=== PATIENT | male | born 1950 | race Caucasian/White ===

== ENCOUNTER 2021-07-31 17:48 | Emergency (ER) | payer BC, SELFPAY ==
--- NOTE | ~2021-07-31 | XR_ITS ---
EXAMINATION: XR knee LT 3V DATE: 07/31/2021 18:09 INDICATION: Left knee pain TECHNIQUE: Three views of the left knee were obtained. COMPARISON: None. FINDINGS: Alignment is normal. No fracture or osteochondral lesion. There is mild tricompartmental os teoarthritis characterized by tiny marginal osteophytes. No joint effusion/synovitis. Soft tissues a re unremarkable. IMPRESSION: 1. No acute osseous abnormality. Reviewed, dictated and finalized at location F.
[2021-07-31 17:57] VITALS: BP 151/77; PULSE 89; RESP 16; TEMP 36.8; O2SAT 97
--- NOTE | 2021-07-31 18:17 | ED.LOWEXIN ---
HPI - Extremity Injury (Lower) General Chief Complaint: Extremity Injury, Lower Stated Complaint: lt knee pain Time Seen by Provider: 07/31/21 18:17 Source: patient, RN notes reviewed and old records reviewed Mode of arrival: ambulatory History of Present Illness HPI Narrative: 71-year-old male who presents to [facility] care with complaints of pain to his left knee which started yesterday. Patient states he knows of no injury to his left knee has been doing his normal activities with no increased activity home stress to his left knee. Patient states when he first arises to standing position he has pain behind his knee cap and as he bears weight his anterior knee cap area has increased pain with greatest at bottom region of knee. Patient has taken one dose of Naprosyn for his discomfort, he has not used any ice to his knee which has minimal swelling noted. MD complaint: other (knee pain, no known injury) Onset (ago): day(s) (1) Treatments prior to arrival: other (naproxen) Related Data Home Medications Medication Instructions Recorded Confirmed aspirin 81 mg tablet,delayed 81 mg PO DAILY 10/17/19 11/26/20 release (Adult Low Dose Aspirin) Allergies Allergy/AdvReac Type Severity Reaction Status Date / Time adhesive Allergy Unknown Verified 09/02/17 10:02 No Known Allergies Allergy Unverified 03/20/15 07:53 Review of Systems Review of Systems: CONSTITUTIONAL: Denies fever, chills, or sweats. EYES: Denies visual changes, redness, or discharge. ENT: Denies rhinorrhea, congestion, sore throat, or otalgia. CARDIOVASCULAR: Denies chest pain, palpitations, or edema. RESPIRATORY: Denies cough or dyspnea. GASTROINTESTINAL: Denies abdominal pain, nausea, vomiting, or diarrhea. GENITOURINARY: Denies dysuria or hematuria. SKIN: Denies rash or itching. MUSCULOSKELETAL: Denies back pain, positive for left knee joint pain, or myalgia. NEUROLOGIC: Denies headache, numbness, or weakness. PSYCHIATRIC: Denies anxiety or depression. [facility] Past Medical History Medical History BPH (benign prostatic hyperplasia) Elevated liver enzymes Heartburn Hemorrhoids History of measles, mumps, or rubella Hyperlipidemia Hypertension Hypothyroidism Sexual dysfunction Sleep apnea Umbilical hernia Surgical History Surgical History H/O adenoidectomy History of tonsillectomy Family History Family History Father Lymphoma Mother No problems noted. Social History Social History Smoking status: Never smoker Second hand tobacco smoke exposure: No Alcohol intake: never Comments At time of signature, agree with nursing past medical, surgical, social and family history. There is no relevant family history pertinent to the presenting complaint Exam Narrative: GENERAL: Well-appearing, well-nourished, obese and in no acute distress. HEAD: Normocephalic, atraumatic. EYES: PERRLA and EOMI. ENT: Nares clear, no rhinorrhea or epistaxis. Mucous membranes moist. TMs normal with good light reflex throat pink with no lesions or exudate no tonsils present NECK: Supple. No lymphadenopathy CHEST: Clear to auscultation. No respiratory distress. SaO2 97% on room air HEART: Regular rate and rhythm. No murmur heard. Normal peripheral pulses. ABDOMEN: Soft, nontender, nondistended, normal active bowel sounds. EXTREMITIES: Normal range of motion mild edema to left knee full range of motion, pain with bearing weight to the anterior knee. Patient reports pain behind the knee also when first arising. Patient has strong pedal and posterior tibial pulses denies any tingling or numbness to the lower leg denies any known injury SKIN: Warm, dry, no rash. NEURO: No focal deficits. Alert and oriented x3. Course Course Level of Care
== END 2021-07-31 18:41 | disposition home or self-care (01) ==
PROVIDERS: Emergency Provider Registered Nurse; PCP Internal Medicine
DX: M17.12 Unilateral primary osteoarthritis, left knee (principal); N40.0 Benign prostatic hyperplasia without lower urinary tract symptoms; E78.5 Hyperlipidemia, unspecified; I10 Essential (primary) hypertension; E03.9 Hypothyroidism, unspecified; G47.30 Sleep apnea, unspecified; Z79.82 Long term (current) use of aspirin
CPT/HCPCS: 73562; 99213; G0463

== ENCOUNTER → 2022-02-23 14:29 | Outpatient (CLI) | payer MEDICARE, SELFPAY ==
--- NOTE | ~2022-02-23 | XR_ITS ---
Clinical Indication: Cough PA and lateral views of the chest: Comparison: None Findings: There is probable subsegmental left basilar atelectasis. Lungs otherwise clear. Cardiomedi astinal silhouette is within normal limits. Bones and soft tissues are unremarkable. Impression: Probable minimal left basilar atelectasis, otherwise clear lungs. Reviewed, dictated and finalized at location . TELEPHONE TRIAGE Impression: Probable minimal left basilar atelectasis, otherwise clear lungs.
== END ==
PROVIDERS: PCP Internal Medicine; Visit Provider Clinical Nurse Specialist
DX: R05.9 Cough, unspecified (principal)
CPT/HCPCS: 71046

== ENCOUNTER → 2022-03-30 08:08 | Outpatient (CLI) | payer MEDICARE, SELFPAY ==
--- NOTE | ~2022-03-30 | US_ITS ---
Limited Abdominal Sonogram: Real-time sonographic imaging of the right upper quadrant was performed. Clinical History: Fatty infiltration of the liver Findings: The liver appears mildly echogenic/heterogeneous, with no evidence of mass lesion or bile duct dilatation. Main portal vein demonstrates normal direction of flow. The gallbladder is well dist ended, and appears normal with no evidence of gallstone or wall thickening. The common bile duct jose d ures 4 mm. The visualized pancreas, aorta, and IVC are unremarkable. Impression: Diffuse fatty infiltration of liver. Reviewed, dictated and finalized at location M. F OF STAFF Impression: Diffuse fatty infiltration of liver.
== END ==
PROVIDERS: PCP Internal Medicine; Visit Provider Nurse Practitioner
DX: K76.0 Fatty (change of) liver, not elsewhere classified (principal)
CPT/HCPCS: 76705

== ENCOUNTER 2022-06-10 06:30 | Day surgery (SDC) | payer MEDICARE, SELFPAY ==
[2022-04-16 11:15] VITALS: BMI 36.3
[2022-05-26 11:29] VITALS: BMI 36.3
--- NOTE | 2022-06-09 11:54 | WPDANESEPPF ---
Anes - Initial Pre Proc Eval Procedure: Operation Date: 06/10/22 08:00 Proposed Procedures s Esophagogastroduodenoscopy - Madhu Hernandez MD p Screening Colonoscopy - Madhu Hernandez MD Date/Time: 06/09/22 11:54 Surgeon: Madhu Hernandez MD Pre Op Diagnosis: Gerd Neoplasm Screening Patient Data Age: 71 Gender: M Height: 1.8 m Weight: 118 kg Allergies Allergy/AdvReac Type Severity Reaction Status Date / Time adhesive Allergy Mild Redness of Verified 06/10/22 06:58 Skin Home Medications Medication Instructions Recorded Confirmed Type aspirin 81 mg tablet,delayed 81 mg PO DAILY 10/17/19 06/10/22 History release (Adult Low Dose Aspirin) lisinopril 20 mg tablet 20 mg PO DAILY #90 tabs 12/16/21 06/10/22 Rx azelastine 137 mcg (0.1 %) nasal 137 mcg (0.137 mL) intranasal Q12H 02/23/22 06/10/22 Rx spray aerosol #30 mL fluticasone propionate 50 See Rx Instructions .Route 02/25/22 06/10/22 Rx mcg/actuation nasal .COMPLEX #48 grams spray,suspension pravastatin 40 mg tablet 40 mg PO QHS #90 tabs 03/26/22 06/10/22 Rx tamsulosin 0.4 mg capsule (Flomax) 0.4 mg PO DAILY #90 caps 03/26/22 06/10/22 Rx levothyroxine 50 mcg tablet 50 mcg PO DAILY #90 tabs 06/02/22 06/10/22 Rx Patient hx anesthesia problems: none Family hx anesthesia problems: none Results Review: All pre-operative results and documents have been reviewed as part of the pre-operative evaluation. [facility] Past Medical History Medical History (Updated 06/09/22 @ 11:55 by Rubin Lima MD) BPH (benign prostatic hyperplasia) Elevated liver enzymes Heartburn Hemorrhoids History of measles, mumps, or rubella Hyperlipidemia Hypertension Hypothyroidism Obesity Sexual dysfunction Sleep apnea Umbilical hernia Surgical History Surgical History H/O adenoidectomy History of tonsillectomy Family History Family History Father Lymphoma Mother No problems noted. Social History Social History Smoking status: Never smoker Second hand tobacco smoke exposure: No Alcohol intake: never Substance use: never Substance use type: does not use Lack of Transportation: No Lack of Food: Never True Current Housing: I Have Housing Concerned About Future Housing: No Difficulty Paying Gas/Electric Bills: No Difficulty Paying for Meds: No Currently Unemployed: No Living arrangements: with family Spiritual care concerns: No Anes - Eval Final PreProcedure Day of Procedure 06/09/22 11:54 Patient weight: obese Heart: regular rate and rhythm Lungs: clear to auscultation and normal air movement Airway: Mallampati scale class II Neurological: alert and oriented Last oral intake: >/= 8 hours ASA classification: III Emergent: no Anesthetic plan: proceed Anesthesia type and monitoring: general GIVS Results Review: All pre-operative results and documents have been reviewed as part of the pre-operative evaluation. Informed Consent: The patient's anesthetic plan and its attendant risks and benefits were discussed with the patient/family/POA. Questions were solicited and answers provided to the satisfaction of the patient/family/POA.
--- NOTE | 2022-06-09 12:15 | PM.HPGS ---
History of Present Illness History of Present Illness Consent: Risks, benefits, and alternatives have been discussed and questions answered. Patient agrees to proceed with procedure. Chief complaint: Gerd Neoplasm Screening Narrative: Justyn Mendoza is a 71 year old male With a persistent cough since he had COVID. He also has symptoms when he lays flat such as in bed in that is difficult for him to breathe and he has test discomfort. He also has difficulty swallowing primarily liquids. He will sometimes choke as if it is going down the wrong way. He does not have issues were solid food gets stuck while eating. He does take famotidine once a day to help with his nighttime symptoms her He is due for colon cancer screening.In 2016 he had multiple adenomas removed. His last colonoscopy was in 2019 and was clear of polyps. Review of Systems Review of Systems: All systems reviewed & are unremarkable except as noted in HPI and below PMFSH Past Medical History Medical History BPH (benign prostatic hyperplasia) Elevated liver enzymes Heartburn Hemorrhoids History of measles, mumps, or rubella Hyperlipidemia Hypertension Hypothyroidism Obesity Sexual dysfunction Sleep apnea Umbilical hernia Surgical History Surgical History H/O adenoidectomy History of tonsillectomy Family History Family History Father Lymphoma Mother No problems noted. Social History Social History Smoking status: Never smoker Second hand tobacco smoke exposure: No Alcohol intake: never Substance use: never Substance use type: does not use Lack of Transportation: No Lack of Food: Never True Current Housing: I Have Housing Concerned About Future Housing: No Difficulty Paying Gas/Electric Bills: No Difficulty Paying for Meds: No Currently Unemployed: No Living arrangements: with family Spiritual care concerns: No Meds Home Medications and Allergies Home Medications Medication Instructions Recorded Confirmed Type aspirin 81 mg tablet,delayed 81 mg PO DAILY 10/17/19 06/10/22 History release (Adult Low Dose Aspirin) lisinopril 20 mg tablet 20 mg PO DAILY #90 tabs 12/16/21 06/10/22 Rx azelastine 137 mcg (0.1 %) nasal 137 mcg (0.137 mL) intranasal Q12H 02/23/22 06/10/22 Rx spray aerosol #30 mL fluticasone propionate 50 See Rx Instructions .Route 02/25/22 06/10/22 Rx mcg/actuation nasal .COMPLEX #48 grams spray,suspension pravastatin 40 mg tablet 40 mg PO QHS #90 tabs 03/26/22 06/10/22 Rx tamsulosin 0.4 mg capsule (Flomax) 0.4 mg PO DAILY #90 caps 03/26/22 06/10/22 Rx levothyroxine 50 mcg tablet 50 mcg PO DAILY #90 tabs 06/02/22 06/10/22 Rx Allergies Allergy/AdvReac Type Severity Reaction Status Date / Time adhesive Allergy Mild Redness of Verified 06/10/22 06:58 Skin Exam Const: General: alert Orientation/consciousness: patient oriented x3 Resp: Auscultation: clear to auscultation bilaterally Cardio: Rhythm: regular rhythm GI: GI Palp: Yes Soft to palpation and No Tenderness to palpation present (GI) Neuro: General: patient oriented x3 Assessment and Plan Assessment and plan (1) Chronic GERD: Code(s): K21.9 - Gastro-esophageal reflux disease without esophagitis Status: Acute Assessment and Plan: EGD with possible biopsy or dilatation or cautery. (2) Screening for colon cancer: Code(s): Z12.11 - Encounter for screening for malignant neoplasm of colon Status: Acute Assessment and Plan: Colonoscopy with possible biopsy or polypectomy or cautery or injection of substances.
[2022-06-10 06:45] VITALS: BP 151/74; PULSE 80; RESP 16; TEMP 36.7; O2SAT 97
[2022-06-10] MEDS: LACTATED RINGERS 1,000 ML 150 ML IV CONT (07:08)
[2022-06-10 08:24] VITALS: BP 104/58; PULSE 82; RESP 18; O2SAT 93
[2022-06-10 08:34] VITALS: BP 106/77; PULSE 73; RESP 18; O2SAT 96
[2022-06-10 08:44] VITALS: BP 119/67; PULSE 71; RESP 18; O2SAT 95
--- NOTE | 2022-06-22 08:29 | WPDANESPN ---
Anes - Prog Note Post-Op Date/Time: 06/22/22 08:29 Cardiovascular status: normal Respiratory status: normal Airway patency: baseline Mental status: baseline Post-Op hydration status: normal Vital Signs: Last Vital Signs Temp 36.7 C 06/10/22 06:45 Pulse 71 06/10/22 08:44 Resp 18 06/10/22 08:44 BP 119/67 06/10/22 08:44 Pulse Ox 95 06/10/22 08:44 O2 Del Method Room Air 06/10/22 08:44 Pain Score (VAS): 0 Post-procedural complaints: none Patient Feedback: Patient satisfied with anesthetic care.
== END 2022-06-10 09:05 | disposition home or self-care (01) ==
PROVIDERS: PCP Internal Medicine; Visit Provider Internal Medicine Gastroenterology
PROC: 0DJ08ZZ Inspection of Upper Intestinal Tract, Via Natural or Artificial Opening Endoscopic (ICD-10-PCS; CPT 43235; principal; 2022-06-10 08:00)
PROC: 0DJD8ZZ Inspection of Lower Intestinal Tract, Via Natural or Artificial Opening Endoscopic (ICD-10-PCS; CPT 45378; 2022-06-10 08:00)
DX: Z12.11 Encounter for screening for malignant neoplasm of colon (principal)
CPT/HCPCS: 45385; 43239

== ENCOUNTER 2022-06-10 10:01 | Outpatient (NON) | payer MEDICARE, SELFPAY | END 2022-06-10 10:02 | disposition home or self-care (01) | LOC: ANHLAB 06-11 10:03 | PROVIDERS: PCP Internal Medicine; Visit Provider Internal Medicine Gastroenterology | DX: K21.9 Gastro-esophageal reflux disease without esophagitis (principal); Z12.11 Encounter for screening for malignant neoplasm of colon | CPT/HCPCS: 88305 ==

== ENCOUNTER → 2023-03-17 07:46 | Outpatient (CLI) | payer MEDICARE, SELFPAY ==
--- NOTE | ~2023-03-17 | US_ITS ---
EXAMINATION: US right upper quadrant DATE: 03/17/2023 08:17 INDICATION: Fatty change of the liver TECHNIQUE: Multiple grayscale and Doppler ultrasound images of the abdomen were obtained. COMPARISON: None available FINDINGS: Bowel gas obscures visualization of the pancreas. The visualized portions of the pancreas a re unremarkable. The liver demonstrates increased echogenicity, heterogenous echotexture, and decreas ed through transmission. No surface nodularity. Normal hepatopetal flow in the main portal vein. The gallbladder is normal with no abnormal wall thickening, pericholecystic fluid or stones. The normal c ommon bile duct measures 6 mm. There was no sonographic Miller sign. IMPRESSION: 1. Diffuse hepatic steatosis. Reviewed, dictated and finalized at location L. [employer] DOOR MECHANIC
== END ==
PROVIDERS: PCP Clinical Nurse Specialist; Visit Provider Clinical Nurse Specialist
DX: K76.0 Fatty (change of) liver, not elsewhere classified (principal)
CPT/HCPCS: 76705

== ENCOUNTER 2023-04-21 10:53 | Outpatient (CLI) | payer MEDICARE, SELFPAY ==
--- NOTE | ~2023-04-21 | CT_ITS ---
EXAMINATION: CT sinus wo con DATE: 04/21/2023 11:11 INDICATION: Chronic maxillary sinusitis. TECHNIQUE: Computed tomography (CT) of the paranasal sinuses was performed without intravenous contra st. Iterative reconstruction technique was employed. The dose-length product was 307.43 mGy-cm. COMPARISON: Head CT 05/10/2012 FINDINGS: There is mild mucosal thickening in the frontal sinuses, ethmoid sinuses, and maxillary sin uses. The sphenoid sinuses are clear. There is leftward deviation of the nasal septum with a left lat eral spur. The ostiomeatal units are patent. IMPRESSION: 1. Mild mucosal thickening in the paranasal sinuses. 2. Leftward deviation of the nasal septum. Reviewed, dictated and finalized at location A.
== END 2023-04-21 10:54 ==
PROVIDERS: PCP Otolaryngology; Visit Provider Otolaryngology
DX: J32.0 Chronic maxillary sinusitis (principal); J34.2 Deviated nasal septum
CPT/HCPCS: 70486

== ENCOUNTER 2023-06-24 09:47 | Outpatient (CLI) | payer MEDICARE, SELFPAY ==
--- NOTE | ~2023-06-24 | XR_ITS ---
EXAMINATION: XR lumbar spine 2-3V DATE: 06/24/2023 10:01 INDICATION: Low back pain, unspecified. TECHNIQUE: 3 views of lumbar spine were obtained. COMPARISON: None. FINDINGS: There is 7 degrees levocurvature of thoracolumbar spine. There is mild chronic anterior wed ging of T12 and L1 vertebral bodies. There is mildly decreased disc height at L2-L3, moderately decre ased disc height at L3-L4 and L4-L5, and severely decreased disc height at L5-S1. There is multilevel facet joint osteoarthritis, severe lower lumbar spine. IMPRESSION: 1. Severe lower lumbar spondylosis. Reviewed, dictated and finalized at location E.
== END 2023-06-24 09:48 ==
LOC: GOSHIMG 09:48
PROVIDERS: PCP Clinical Nurse Specialist; Visit Provider Clinical Nurse Specialist
DX: M43.06 Spondylolysis, lumbar region (principal)
CPT/HCPCS: 72100

== ENCOUNTER 2023-07-13 08:30 | Outpatient (CLI) | payer MEDICARE, SELFPAY ==
--- NOTE | 2023-07-13 | ECG_ITS ---
[facility] [address] Test Date: 2023-07-13 Pat Name: Justyn Mendoza Department: Room: Gender: M Cafe Server: : 1950 Requested By: Janina Diaz Order Number: [id number] Reading MD: Viet Nieves M.D. Measurements Intervals [place] Rate: 78 P: 35 MS: 148 QRS: -89 QRSD: 110 T: 53 QT: 393 QTc: 449 Interpretive Statements SINUS RHYTHM POSSIBLE LEFT ATRIAL ENLARGEMENT [-0.1mV P WAVE IN V1/V2] RIGHT BUNDLE BRANCH BLOCK [120+ ms QRS DURATION, UPRIGHT V1, 40+ ms S IN I/aVL/V4/V5/V6] LEFT ANTERIOR FASCICULAR BLOCK [QRS AXIS <= -45, QR IN I, RS IN II] No previous ECG available for comparison Electronically Signed On 07-13-2023 14:14:19 CDT by Viet Nieves M.D.
== END 2023-07-13 08:31 | disposition home or self-care (01) ==
PROVIDERS: PCP Clinical Nurse Specialist; Visit Provider Nurse Anesthetist, Certified Registered
DX: Z01.818 Encounter for other preprocedural examination (principal); I45.10 Unspecified right bundle-branch block; I44.4 Left anterior fascicular block
CPT/HCPCS: 93005

== ENCOUNTER 2024-01-04 11:19 | Outpatient (CLI) | payer MEDICARE, SELFPAY ==
--- NOTE | ~2024-01-04 | CT_ITS ---
EXAMINATION: CT abdomen pelvis w con DATE: 01/04/2024 12:03 INDICATION: Unspecified abdominal hernia without obstruction. TECHNIQUE: Computed tomography (CT) of the abdomen and pelvis was performed with 100 mL Omnipaque 350 intravenous contrast. Automated exposure control and iterative reconstruction technique were employe d. The dose-length product was 1097.33 mGy-cm. COMPARISON: None. FINDINGS: The visualized portions of the lung bases demonstrate mild atelectasis. No pleural effusion . The heart size is normal. There are coronary artery calcifications. No pericardial effusion. There are cysts in the liver measuring up to 11 mm. The gallbladder, spleen, pancreas, and left adrenal gla nd are normal. There are dystrophic calcifications in the right adrenal gland. There is a 2.9 cm cyst in the right kidney. There is cortical thinning of the left kidney. There is a left inguinal hernia containing fat. There is a right inguinal hernia containing the cecum and appendix. There are no dila va loops of bowel. There is diverticulosis of the colon without evidence of diverticulitis. There ar e no pathologically enlarged lymph nodes. There is no free intraperitoneal fluid. There are bridging endplate osteophytes at multiple levels in the spine, consistent with diffuse idiopathic skeletal hyp erostosis (DISH). IMPRESSION: 1. Right inguinal hernia containing the cecum and appendix without obstruction. 2. Left inguinal hernia containing fat. Reviewed, dictated and finalized at location A. 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
[2024-01-04 11:42] LABS: Estimated Glomerular Filt Rate > 60
== END 2024-01-04 11:20 | disposition home or self-care (01) ==
LOC: MICIMG 11:19
PROVIDERS: PCP Clinical Nurse Specialist; Visit Provider Clinical Nurse Specialist
DX: K40.20 Bilateral inguinal hernia, without obstruction or gangrene, not specified as recurrent (principal); R10.9 Unspecified abdominal pain
CPT/HCPCS: 74177; Q9967

== ENCOUNTER 2024-03-07 09:01 | Outpatient (CLI) | payer MEDICARE, SELFPAY ==
--- OUTSIDE RECORDS SUMMARY | 2024-03-07 01:44 | XMS_ITS | Patient Health Summary ---
Author Organization [facility] Address [address] [place] [address] Care Team Providers Care Hr Coordinator Name Role Phone Unavailable Primary Care Provider Unavailabl e Note from [facility] [place][note 2],non-owned Affiliates and Associated Physician Practices is amultiple site organization consisting of ambulatory clinics and hospital sitesin [place], [place], [place] and [place]. This disclosure is being madepursuant to the Care Everywhere program and may not contain all information available regarding this patient. Last updated 17.[facility] Social History Tobacco Use Types Packs/Day Years Used Date Smoking Tobacco: Never Assessed Sex and Gender Information Value Date Recorded Sex Assigned at Not on file Gender Identity Not on file Sexual Orientation Not on file Procedures * DERMATOPATHOLOGY(Performed 06/16/2021) * DERMATOPATHOLOGY(Performed 02/20/2021) Results * DERMATOPATHOLOGY (06/16/2021 12:00 AM CDT) Only the most recent of2 resultswithin the time period is included. Case Report Dermatopathology Report ? Case: [id number] ? Authorizing Provider: ??Nando Shay MD ?Collected: ? 06/16/2021 12:00 AM ? Ordering Location: ? [facility] DermPath Lab ?Received: ?06/17/2021 04:30 PM ? Pathologist: ? Orly Osuna, ? MD ? Specimen: ?Skin, right forearm ? 2 1:01 PM [facility] Final Diagnosis Specimen A. 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 Path # [id number]. 2 1:01 PM [facility] Gross Description Specimen A: Received is one formalin filled container labeled with the patient's name and designated right forearm. The specimen consists of a shave biopsy measuring [id number]. Jar 0. 2 1:01 PM [facility]ERMATOPATHOLOG[facility] Microscopic Description Specimen A. SKIN, right forearm: There is focal parakeratosis and spongiosis. The epidermis is partially eroded. In the dermis there is a mainly superficial perivascular lymphohistiocytic inflammatory infiltrate with eosinophils. Grocott's methenamine silver (GMS) stain fails to highlight fungal elements in the available sections. Additional deeper sections were obtained and reviewed. COMMENT: The histological differential diagnosis includes a arthropod bite reaction, contact dermatitis, an eczematous drug eruption, and less likely the urticarial phase of bullous pemphigoid. 2 1:01 PM CDT DERMATOPATHOLOGY LABORATORY Disclaimer An external and internal positive and negative controls are appropriate for the histochemical, immunohistochemical and immunofluorescence stain(s) in this case (if any), except where stated explicitly. The performance characteristics of the stain(s) cited in this report were developed and its performance characteristic determined by the Dermatopathology Laboratory at [facility], directed by Dr. Isabel Winters. These tests need not be, and therefore are not, approved by the [place] Food and Drug Administration. The tests are used for clinical purposes. Billing Codes Specimen Charges Stain Charges 18756 1 55228 1 2 1:01 PM CDT DERMATOPATHOLOGY LABORATORY Embedded Images 2 1:01 PM CDT DERMATOPATHOLOGY LABORATORY Pathology/Cytolog y TISSUE SPECIMEN FROM SKIN / Unknown 06/16/2021 06/17/2021 4:30 PM CDT Nando Shay MD LAB - PATHOLOGY/CYTO LOGY ORDERABLES DERMATOPATHOLOGY LABORATORY [facility] - Department of Dermatology [address], [address] Floor [address] [phone]
--- OUTSIDE RECORDS SUMMARY | 2024-03-07 01:44 | XMS_ITS | CONTINUITY OF CARE DOCUMENT ---
Author Name yuniel brice Address Unknown Organization [facility] Address [address] [place] [address] [address] [place] [address] Phone [phone] Care Team Providers Care Methods Specialist Engineer Name Role Phone Leonardo MCKOY, Caron Unavailable GAYE OH MD Unavailable MINDY SANABRIA DO Unavailable INSURANCE PROVIDERS Payer name Policy type / Coverage type [place] red democrat ID [facility] [id number]
--- OUTSIDE RECORDS SUMMARY | 2024-03-07 01:44 | XMS_ITS | Encounter Summary ---
Author Organization [facility] Address [address] [facility] [place] [place] [address] Care Team Providers Care Manager Bar Name Role Phone Unavailable Primary Care Provider Unavailabl e Encounter Details Date Type Department Care Team (Late st Contact Info) Description 02/24/2021 Lab Requisition [facility] Care DermPath Lab [address] [place] [address] Nando Shay MD [address] [place] [address] Social History Tobacco Use Types Packs/Day Years Used Date Smoking Tobacco: Never Assessed Sex and Gender Information Value Date Recorded Sex Assigned at Not on file Gender Identity Not on file Sexual Orientation Not on file documented as of this encounter Plan of Treatment Not on file documented as of this encounter Procedures Procedure Name Priority Date/Time Associated Diagnosis Comments DERMATOPATHOLOGY Routine 02/20/2021 12:0 0 AM INFORMATION SUPPORT PROJECT MANAGER documented in this encounter Results * DERMATOPATHOLOGY (02/20/2021 12:00 AM INFORMATION SUPPORT PROJECT MANAGER) Case Report Dermatopathology Report ? Case: [id number] ? Authorizing Provider: ??Nando Shay MD ?Collected: ? 02/20/2021 12:00 AM ? Ordering Location: ? [facility] ?Received: ?02/24/2021 08:05 AM ? Pathologist: ? Orly Osuna, ? MD ? Specimen: ?Skin, right wrist ? 2 5:27 PM [facility] DERMATOPATHOLOGY LABORATORY Final Diagnosis Specimen A. SKIN, right wrist: ACTINIC KERATOSIS (L57.0) EPIDERMAL NECROSIS SUGGESTIVE OF EXCORIATION (L98.499) 2 5:27 PM [facility] DERMATOPATHOLOGY LABORATORY Clinical History BCCA vs SCCA vs other. Path# [id number]. 2 5:27 PM [facility] DERMATOPATHOLOGY LABORATORY Gross Description Specimen A: Received is one formalin filled container labeled with the patient's name and designated right wrist. The specimen consists of a shave biopsy measuring [id number]. Jar 0. 2 5:27 PM [facility] DERMATOPATHOLOGY LABORATORY Microscopic Description Specimen A. SKIN, right wrist: There is focal parakeratosis. The lower half of the epidermis shows disorderly maturation of keratinocytes with nuclear pleomorphism. There is epidermal spongiosis. The epidermis is focally necrotic and covered with a scale-crust. There is fibrin at the base. Ki-67 immunohistochemical stain reveals a elevated proliferative index in the lower epidermis. Grocott's methenamine silver (GMS) stain fails to highlight fungal elements in the available sections. Additional deeper sections were obtained and reviewed. 2 5:27 PM [facility] DERMATOPATHOLOGY LABORATORY Disclaimer An external and internal positive and negative controls are appropriate for the histochemical, immunohistochemical and immunofluorescence stain(s) in this case (if any), except where stated explicitly. The performance characteristics of the stain(s) cited in this report were developed and its performance characteristic determined by the Dermatopathology Laboratory at [facility], directed by Dr. Isabel Winters. These tests need not be, and therefore are not, approved by the [place] Food and Drug Administration. The tests are used for clinical purposes. Billing Codes Specimen Charges Stain Charges 92480 1 10507 37967 1 1 2 5:27 PM [facility] DERMATOPATHOLOGY LABORATORY Embedded Images 2 5:27 PM [facility] DERMATOPATH[facility]Y LABORATORY Pathology/Cytolog y TISSUE SPECIMEN FROM SKIN / Unknown 02/20/2021 02/24/2021 8:05 AM INFORMATION SUPPORT PROJECT MANAGER Nando Shay MD LAB - PATHOLOGY/CYTO LOGY ORDERABLES DERMATOPATHOLOGY LABORATORY [facility] - Department of Dermatology [address], [address] [phone] documented in this encounter Visit Diagnoses Not on filedocumented in this encounter
--- OUTSIDE RECORDS SUMMARY | 2024-03-07 01:44 | XMS_ITS | Clinical Summary ---
Author Organization [facility] Address [address] [place] [address] Care Team Providers Care Player Development Manager Name Role Phone Zheng Murillo DO Primary Care Provider [phone] Allergies No known active allergies Medications aspirin 325 mg tablet Active polycarbophil (FIBER-TABS) 625 mg tablet Active lisinopril (PRINIVIL,ZESTR IL) 20 mg tablet Active multivitamin tabletIndicatio ns:Vitamin Deficiency Prevention Active pravastatin (PRAVACHOL) 40 mg tablet Active tamsulosin (FLOMAX) 0.4 mg extended release capsule Acti ve levothyroxine (SYNTHROID) 50 mcg tablet TK ONE T PO QD 1 10/30/2018 Active fluticasone propionate (FLONASE) 50 mcg/actuation nasal spray 08/24/2019 Active omeprazole (PriLOSEC) 40 mg capsule TAKE 1 CAPSULE BY MOUTH EVERY DAY 30 MINUTES BEFORE MORNING MEAL FOR 90 DAYS 11/30/2023 Active Active Problems Problem Noted Date Diagnosed Date Obstructive sleep apnea 11/21/2019 Ankylosing spondylitis of multiple sites in spin e 01/06/2017 Hemangioma of skin 04/21/2016 Encounters Date Type Department Care Team Description 01/20/2024 Plan of Care Documentation [facility] Occupational Therapy [address] [place] [address] 6th [place] [address] [place] [address] 01/19/2024 4:10 PM HEARING THERAPIST Therapy [facility] Occupational Therapy [address] [place] [address] 6th [place] [address] [place] [address] Nava Cannon OT Arthritis of carpometacarpal (CMC) joint of left thumb (Primary Dx) 01/19/2024 3:20 PM HEARING THERAPIST Office Visit [facility] Orthopaedic Surgery [facility] [facility] 6th [place] [address] [place] [address] Emili White MD Trigger ring finger of left hand (Primary Dx); Trigger ring finger of right hand; Arthritis of carpometacarpal (CMC) joint of left thumb 01/19/2024 Orders Only BUSTAMANTE OS HAND/WRIST Scanning, Provider from Last 3 Months Family History Medical History Relation Name Comments Heart disease Brother Family history of cardiac disorder - (Added by TW Conv) Cancer Father Family history of malignant neoplasm - (Added by TW Conv) Heart disease Father Family history of cardiac disorder - (Added by TW Conv) Arthritis Mother Family history of arthritis - (Added by TW Conv) Heart disease Mother Family history of cardiac disorder - (Added by TW Conv) Hypertension Mother Family history of hypertension - (Added by TW Conv) Kidney disease Mother Family histor y of kidney disease - (Added by TW Conv) Relation Name Status Comments Brother Father Mother Social History Tobacco Use Types Packs/Day Years Used Date Smoking Tobacco: Never Smokeless Tobacco: Never Alcohol Use Standard Drinks/Week Comments Not Currently 0 (1 standard drink = 0.6 oz pur e alcohol) Sex and Gender Information Value Date Recorded Sex Assigned at Not on file Legal Sex Male 11:35 PM HEARING THERAPIST Gender Identity Not on file Sexual Orientation Not on file Obstetrics History Last Filed Vital Signs Vital Sign Reading Time Taken Comments Blood Pressure 148/78 11/20/2019 3:00 PM CDT Pulse 89 11/20/2019 3:00 PM CDT Temperature 36.1 ??C (97 ??F) 11/20/2019 3:00 PM CDT Respiratory Rate - - Oxygen Saturation 95% 11/20/2019 3:00 PM CDT Inhaled Oxygen Concentration - - Weight 117.9 kg (260 lb) 11/20/2019 3:00 PM CDT Height 180.3 cm (5' 11 ) 11/20/2019 3:00 PM CDT Body Mass Index 36.26 11/20/2019 3:00 PM CDT Plan of Treatment Health Maintenance Due Date Last Done Comments Colon Cancer Screening-Colonoscopy 1950 Depression Screening 1949 Fall Risk Assessment 1950 Hepatitis C Screening 1949 Hepatitis B Screening 07/29/1967 Well Visit 65+ 2014 Pneumococcal vaccine 65+ (2 of 2 - PPSV23 or PCV20) 11/25/2018 11/25/2017 Covid-19 Vaccine (3 - season) 2023, 02/14/2020 Influenza Vaccine (#1) 2023 DTaP/Tdap/Td Vaccine (2 - Td or Tdap) 03/04/2028 Zoster Vaccine Completed 04/05/2018, 01/19/2018 Procedures Procedure Name Priority Date/Time Associated Diagnosis Comments SCAN - RADIOLOGY/IMAGING 01/19/2024 from Last 3 Months Results * SCAN - RADIOLOGY/IMAGING (01/19/2024) Anatomical Region Laterality Modality Other us Provider Scanning Final Result from Last 3 Months Insurance MEDICARE [employer] Care Teams Player Development Manager Relationship Specialty Start Date End Date Zheng Murillo DO PCP - General 11/29/17
--- OUTSIDE RECORDS SUMMARY | 2024-03-07 01:44 | XMS_ITS | Encounter Summary ---
Author Organization [facility] Address [address] [facility] [place] [address] Care Team Providers Care Cloth Seconds Sorter Name Role Phone Unavailable Primary Care Provider Unavailabl e Encounter Details Date Type Department Care Team (Late st Contact Info) Description 06/17/2021 Lab Requisition [facility] Care DermPath Lab [address] [facility], [place] [phone] Nando Shay MD [address] [facility] [place] [address] Social History Tobacco Use Types [...] Priority Date/Time Associated Diagnosis Comments DERMATOPATHOLOGY Routine 06/16/2021 12:0 0 AM CDT documented in this encounter Results * DERMATOPATHOLOGY (06/16/2021 12:00 AM CDT) Case Report Dermatopathology Report ? Case: [id number] ? Authorizing Provider: ??Nando Shay MD ?Collected: ? 06/16/2021 12:00 AM ? Ordering Location: ? [facility] ?Received: ?06/17/2021 04:30 PM ? Pathologist: ? Orly Osuna, ? MD ? Specimen: ?Skin, right forearm ? 2 1:01 PM [facility] DERMATOPATHOLOGY LABORATORY Final Diagnosis Specimen A. 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 Path # [id number]. 2 1:01 PM [facility] DERMATOPATHOLOGY LABORATORY Gross Description Specimen A: Received is one formalin filled container labeled with the patient's name and designated right forearm. The specimen consists of a shave biopsy measuring [id number]. Jar 0. 2 1:01 PM [facility] DERMATOPATHOLOGY LABORATORY Microscopic Description Specimen A. SKIN, [...] characteristic determined by the Dermatopathology Laboratory at [facility], directed by Dr. Isabel Winters. These tests need not be, and therefore are not, approved by the [place] Food and Drug Administration. The tests are used for clinical purposes. Billing Codes Specimen Charges Stain Charges 28219 1 56252 1 2 1:01 PM [facility] DERMATOPATHOLOGY LABORATORY Embedded Images 2 1:01 PM [facility] DERMATOPATHOLOGY LABORATORY Pathology/Cytolog y TISSUE SPECIMEN FROM SKIN / Unknown 06/16/2021 06/17/2021 4:30 PM CDT Nando Shay MD LAB - PATHOLOGY/CYTO LOGY ORDERABLES DERMATOPATHOLOGY LABORATORY [facility] - Department of Dermatology [facility] Medicine [address] [place] [address], [address] [phone] documented in this encounter Visit Diagnoses Not on filedocumented in this encounter
--- OUTSIDE RECORDS SUMMARY | 2024-03-07 01:44 | XMS_ITS | Clinical Summary ---
Author Organization [facility] Address [address] [address] [facility] [place] [address] Care Team Providers Care Content Writer Name Role Phone Unavailable Primary Care Provider Unavailabl e Source Comments [facility],non-owned Affiliates and Associated Physician Practices is amultiple site organization consisting of ambulatory clinics and hospital sitesin [place], [place], [place] and [place]. This disclosure is being madepursuant to the Care Everywhere program and may not contain all information available regarding this patient. Last updated 17.[facility] [email or web address] Social History Tobacco Use Types Packs/Day Years Used Date Smoking Tobacco: Never Assessed Sex and Gender Information Value Date Recorded Sex Assigned at Not on file Gender Identity Not on file Sexual Orientation Not on file Plan of Treatment Health Maintenance Due Date Last Done Comments COLOGUARD (AGES 45-75) - COL ON CA SCREENING 1949 COLON MONITORING 1949 COLONOSCOPY - COLON CA SCREENING 1949 CT COLONOGRAPHY - COLON CA SCREENING 1950 Colorectal Cancer Screening 1949 FIT - COLON CA SCREENING 1949 FLEX SIG - COLON CA SCREENING 1949 LIPID TESTING 1949 HEPATITIS C SCREENING 07/24/1967 DTAP/TDAP/TD VACCINES (1 - Tdap) 1968 PNEUMOCOCCAL VACCINE 50+ (1 of 1 - PCV) 07/29/1999 ZOSTER VACCINE (1 of 2) 07/29/1999 COVID-19 VACCINE ( - 2023-2 5 season) 2023 INFLUENZA VACCINE (#1) 2023 DEPRESSION SCREENING 02/08/2024 MEDICARE AWV ? CALENDAR YEAR 2024 Respiratory Syncytial Virus (RSV) Vaccine Pt: or over 60 yrs (1 - 1-dose 75+ series) 2024 HEPATITIS B VACCINE Aged Out No longe r eligible based on patient's age to complete this topic HIB VACCINE Aged Out No longer eligi ble based on patient's age to complete this topic HPV VACCINE Aged Out No longer eligi ble based on patient's age to complete this topic MENINGOCOCCAL (Group B) VACCINE Aged Out No longer eligible based on patient's age to complete this topic MENINGOCOCCAL VACCINE Aged Out No [place] josué eligible based on patient's age to complete this topic
--- OUTSIDE RECORDS SUMMARY | 2024-03-07 01:44 | XMS_ITS | Referral Summary ---
Author Organization [facility] Address [address] [place] [address] Care Team Providers Care Egg Tester Name Role Phone Zheng Murillo DO Primary Care Provider [phone] Encounters Date Type Department Care Team Description 01/20/2024 Plan of Care Documentation [facility] Occupational Therapy [address] [place] [address] 6th [place] [address] [place] [address] 01/19/2024 Orders Only BUSTAMANTE OS HAND/WRIST Scanning, Provider 01/19/2024 4:10 PM EXCAVATOR OPERATOR Therapy [facility] Occupational Therapy [facility] 6th [place] [address] [place] [address] Nava Cannon OT Arthritis of carpometacarpal (CMC) joint of left thumb (Primary Dx) 01/19/2024 3:20 PM EXCAVATOR OPERATOR Office Visit [facility] Orthopaedic Surgery [address] [place] [address] 6th [place] [address] [place] [address] Emili White MD Trigger ring finger of left hand (Primary Dx); Trigger ring finger of right hand; Arthritis of carpometacarpal (CMC) joint of left thumb from Last 3 Months Allergies No known active allergies Medications aspirin [...] spin e 01/06/2017 Hemangioma of skin 04/21/2016 Social History Tobacco Use Types Packs/Day Years Used Date Smoking Tobacco: Never Smokeless Tobacco: Never Alcohol Use Standard Drinks/Week Comments Not Currently 0 (1 standard drink = 0.6 oz pur e alcohol) Sex and Gender Information Value Date Recorded Sex Assigned at Not on file Legal Sex Male 11:35 PM EXCAVATOR OPERATOR Gender Identity Not on file Sexual Orientation Not on file Last Filed Vital Signs Vital Sign Reading [...] 11/20/2019 3:00 PM CDT Plan of Treatment Not on file Procedures Procedure Name Priority Date/Time Associated Diagnosis Comments SCAN - RADIOLOGY/IMAGING 01/19/2024 from Last 3 Months Results * SCAN - RADIOLOGY/IMAGING (01/19/2024) Anatomical Region Laterality Modality Other Provider Scanning Final Result from Last 3 Months Insurance MEDICARE [employer] Care Teams Egg Tester Relationship Specialty Start Date End Date Zheng Murillo DO PCP - General 01/05/17
--- OUTSIDE RECORDS SUMMARY | 2024-03-07 01:44 | XMS_ITS | Referral Summary ---
Author Organization [facility] Address [address] [place] [address] Care Team Providers Care Hospital Administrative Assistant Name Role Phone Unavailable Primary Care Provider Unavailabl e Source Comments [facility],non-owned Affiliates and Associated Physician Practices is amultiple site organization consisting of ambulatory clinics and hospital sitesin [place], [place], [place] and [place]. This disclosure is being madepursuant to the Care Everywhere program and may not contain all information available regarding this patient. Last updated 17.[facility] Social History Tobacco Use Types Packs/Day Years Used Date Smoking Tobacco: Never Assessed Sex and Gender Information Value Date Recorded Sex Assigned at Not on file Gender Identity Not on file Sexual Orientation Not on file Plan of Treatment Not on file
--- OUTSIDE RECORDS SUMMARY | 2024-03-07 09:32 | XMS_ITS | CONTINUITY OF CARE DOCUMENT ---
Author Name yuniel brice Address Unknown Organization [facility] Address [address] [place] [address] [address] [place] [address] Phone [phone] Care Team Providers Care Director Speech And Hearing Name Role Phone Leonardo MCKOY, Caron Unavailable [phone] GAYE OH MD Unavailable MINDY SANABRIA DO Unavailable [phone] INSURANCE PROVIDERS Payer name Policy type / Coverage type [place] red constitution party ID [facility] [id number]
--- OUTSIDE RECORDS SUMMARY | 2024-03-07 09:33 | XMS_ITS | Clinical Summary ---
Author Organization [facility] Address [address] [place] [address] Care Team Providers Care Mutual Fund Manager Name Role Phone Zheng Murillo DO Primary Care Provider [phone]- [phone] Allergies No known active allergies Medications aspirin [...] Team Description 01/20/2024 Plan of Care Documentation [facility] Occupational Therapy [address] [place] [address] 6th [place] [address] [place] [address] 01/19/2024 4:10 PM CLAIM TAKER Therapy [facility] Occupational Therapy [address] [place] [address] 6th [place] [address] [place] [address] Nava Cannon OT Arthritis of carpometacarpal (CMC) joint of left thumb (Primary Dx) 01/19/2024 3:20 PM CLAIM TAKER Office Visit [facility] Orthopaedic Surgery [facility] 6th [place] [address] [place] [address] Emili White MD Trigger ring finger of [...] on file Legal Sex Male 11:35 PM CLAIM TAKER Gender Identity Not on file Sexual Orientation [...] from Last 3 Months Insurance MEDICARE SOL[employer] [facility] MEDICARE Address: [facility] [address] [place] [address] Care Teams Mutual Fund Manager Relationship Specialty Start Date End Date Zheng Murillo DO PCP - General 11/29/17
--- OUTSIDE RECORDS SUMMARY | 2024-03-07 09:33 | XMS_ITS | Patient Health Summary ---
Author Organization [facility] Address [address] [place] [address] Care Team Providers Care Drywall Taper Name Role Phone Unavailable Primary Care Provider Unavailabl e Note from [facility],non-owned Affiliates and Associated Physician Practices is amultiple site organization consisting of ambulatory clinics and hospital sitesin [place], [place], [place] and [place]. This disclosure is being madepursuant to the Care Everywhere program and may not contain all information available regarding this patient. Last updated 17.[facility] Social History Tobacco Use Types Packs/Day [...] included. Case Report Dermatopathology Report ? Case: [id number] ? Authorizing Provider: ??Nando Shay MD ?Collected: ? 06/16/2021 12:00 AM ? Ordering Location: ? [facility] Care DermPath Lab ?Received: ?06/17/2021 04:30 PM ? Pathologist: ? Orly Osuna, ? MD ? Specimen: ?Skin, right forearm ? 2 1:01 PM [facility] DERMATOPATHOLOGY LABORATORY Final Diagnosis Specimen A. 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 Path # [id number]. 2 1:01 PM [facility] DERMATOPATHOLOGY LABORATORY Gross Description Specimen A: Received is one formalin filled container labeled with the patient's name and designated right forearm. The specimen consists of a shave biopsy measuring [id number]. Jar 0. 2 1:01 PM [facility] DERMATOPATHOLOGY LABORATORY Microscopic Description Specimen A. [...] characteristic determined by the Dermatopathology Laboratory at [facility], directed by Dr. Isabel Winters. These tests need not be, and therefore are not, approved by the [place] Food and Drug Administration. The tests are used for clinical purposes. Billing Codes Specimen Charges Stain Charges 58986 1 46860 1 2 1:01 PM CDT DERMATOPATHOLOGY LABORATORY Embedded Images 2 1:01 PM CDT DERMATOPATHOLOGY LABORATORY Pathology/Cytolog y TISSUE SPECIMEN FROM SKIN / Unknown 06/16/2021 06/17/2021 4:30 PM CDT Nando Shay MD LAB - PATHOLOGY/CYTO LOGY ORDERABLES DERMATOPATHOLOGY LABORATORY [facility] - Department of Dermatology [address], [address] [phone]
--- OUTSIDE RECORDS SUMMARY | 2024-03-07 09:33 | XMS_ITS | Referral Summary ---
Author Organization [facility] Address [address] [place] [address] Care Team Providers Care Business Office Specialist Name Role Phone Zheng Murillo DO Primary Care Provider [phone] Encounters Date Type Department Care Team Description 01/20/2024 Plan of Care Documentation [facility] Occupational Therapy [address] [place] [address] 6th [place] [address] [place] [address] 01/19/2024 Orders Only BUSTAMANTE OS HAND/WRIST Scanning, Provider 01/19/2024 4:10 PM TUNNEL HEADING INSPECTOR Therapy [facility] Occupational Therapy [facility] 6th [place] [address] [place] [address] Nava Cannon OT Arthritis of carpometacarpal (CMC) joint of left thumb (Primary Dx) 01/19/2024 3:20 PM TUNNEL HEADING INSPECTOR Office Visit [facility] Orthopaedic Surgery [address] [place] [address] 6th [place] [address] Emili White MD Trigger ring finger of [...] on file Legal Sex Male 11:35 PM TUNNEL HEADING INSPECTOR Gender Identity Not on file Sexual Orientation [...] 3 Months Insurance MEDICARE [employer]UT[employer] Care Teams Business Office Specialist Relationship Specialty Start Date End Date Zheng Murillo DO PCP - General 01/05/17
--- OUTSIDE RECORDS SUMMARY | 2024-03-07 09:33 | XMS_ITS | Referral Summary ---
Author Organization [facility] Address [address] [place] [address] Care Team Providers Care Chemist Proteins Name Role Phone Unavailable Primary Care Provider Unavailabl e Source Comments [facility],non-owned Affiliates and Associated Physician Practices is amultiple site organization consisting of ambulatory clinics and hospital sitesin [place], [place], [place]. This disclosure is being madepursuant to the Care Everywhere program and may not contain all information available regarding this patient. Last updated 17.[facility] Social History Tobacco Use Types Packs/Day Years Used Date Smoking Tobacco: Never Assessed Sex and Gender Information Value Date Recorded Sex Assigned at Not on file Gender Identity Not on file Sexual Orientation Not on file Plan of Treatment Not on file
--- OUTSIDE RECORDS SUMMARY | 2024-03-07 09:33 | XMS_ITS | Encounter Summary ---
Author Organization [facility] Address [address] [facility] [place] [address] Care Team Providers Care Die Inspector Name Role Phone Unavailable Primary Care Provider Unavailabl e Encounter Details Date Type Department Care Team (Late st Contact Info) Description 06/17/2021 Lab Requisition [facility] Care DermPath Lab [address] [facility], [place] [phone] Nando Shay MD [address] [facility] [address] Social History Tobacco Use Types [...] CDT) Case Report Dermatopathology Report ? Case: [id number] ? Authorizing Provider: ??Nando Shay MD ?Collected: ? 06/16/2021 12:00 AM ? Ordering Location: ? [facility] ?Received: ?06/17/2021 04:30 PM ? Pathologist: ? Orly Osuna, ? MD ? Specimen: ?Skin, right forearm ? 2 1:01 PM [facility] Final Diagnosis Specimen A. SKIN, right forearm: SPONGIOTIC DERMATITIS WITH EOSINOPHILS, ERODED (L30.8) (see microscopic description and comment) 2 1:01 PM [facility] Clinical History Recurrent BCCA vs SCCA vs AK. Path # [id number]. 2 1:01 PM [facility] Gross Description Specimen A: Received is one formalin filled container labeled with the patient's name and designated right forearm. The specimen consists of a shave biopsy measuring [id number]. Jar 0. 2 1:01 PM [facility] Microscopic Description Specimen A. SKIN, [...] characteristic determined by the Dermatopathology Laboratory at [facility], directed by Dr. Isabel Winters. These tests need not be, and therefore are not, approved by the [place] Food and Drug Administration. The tests are used for clinical purposes. Billing Codes Specimen Charges Stain Charges 81181 1 55225 1 2 1:01 PM CDT DERMATOPATHOLOGY LABORATORY Embedded Images 2 1:01 PM CDT DERMATOPATHOLOGY LABORATORY Pathology/Cytolog y TISSUE SPECIMEN FROM SKIN / Unknown 06/16/2021 06/17/2021 4:30 PM CDT Nando Shay MD LAB - PATHOLOGY/CYTO LOGY ORDERABLES DERMATOPATHOLOGY LABORATORY [facility] - Department of Dermatology [facility] Medicine [address] [place] [address], [address] [phone] documented in this encounter Visit Diagnoses Not on filedocumented in this encounter
--- OUTSIDE RECORDS SUMMARY | 2024-03-07 09:33 | XMS_ITS | Encounter Summary ---
Author Organization [facility] Address [address] [facility] [place] [address] Care Team Providers Care Flatwork Catcher Name Role Phone Unavailable Primary Care Provider Unavailabl e Encounter Details Date Type Department Care Team (Late st Contact Info) Description 02/24/2021 Lab Requisition [facility] Care DermPath Lab [address] [facility], [place] [phone] Nando Shay MD [address] [place] [address] Social History Tobacco Use Types [...] Comments DERMATOPATHOLOGY Routine 02/20/2021 12:0 0 AM WAREHOUSE MAN documented in this encounter Results * DERMATOPATHOLOGY (02/20/2021 12:00 AM WAREHOUSE MAN) Case Report Dermatopathology Report ? Case: [id number] ? Authorizing Provider: ??Nando Shay MD ?Collected: ? 02/20/2021 12:00 AM ? Ordering Location: ? [facility] ?Received: ?02/24/2021 08:05 AM ? Pathologist: ? Orly Osuna, ? MD ? Specimen: ?Skin, right wrist ? 2 5:27 PM [facility] DERMATOPATHOLOGY LABORATORY Final Diagnosis Specimen A. SKIN, right wrist: ACTINIC KERATOSIS (L57.0) EPIDERMAL NECROSIS SUGGESTIVE OF EXCORIATION (L98.499) 2 5:27 PM [facility] DERMATOPATHOLOGY LABORATORY Clinical History BCCA vs SCCA vs other. Path# [id number]. 2 5:27 PM [facility] DERMATOPATHOLOGY [facility] Gross Description Specimen A: Received is one formalin filled container labeled with the patient's name and designated right wrist. The specimen consists of a shave biopsy measuring [id number]. Jar 0. 2 5:27 PM [facility] DERMATOPATHOLOGY LABORATORY Microscopic Description Specimen [...] were obtained and reviewed. 2 5:27 PM [facility] DERMATOPATHOLOGY LABORATORY Disclaimer An external and internal positive and negative controls are appropriate for the histochemical, immunohistochemical and immunofluorescence stain(s) in this case (if any), except where stated explicitly. The performance characteristics of the stain(s) cited in this report were developed and its performance characteristic determined by the Dermatopathology Laboratory at [facility], directed by Dr. Isabel Winters. These tests need not be, and therefore are not, approved by the [place] Food and Drug Administration. The tests are used for clinical purposes. Billing Codes Specimen Charges Stain Charges 73301 1 44346 86341 1 1 2 5:27 PM [facility] DERMATOPATHOLOGY LABORATORY Embedded Images 2 5:27 PM [facility] DERMATOP[facility] Pathology/Cytolog y TISSUE SPECIMEN FROM SKIN / Unknown 02/20/2021 02/24/2021 8:05 AM WAREHOUSE MAN Nando Shay MD LAB - PATHOLOGY/CYTO LOGY ORDERABLES DERMATOPATHOLOGY LABORATORY [facility] - Department of Dermatology [address], [address] [phone] documented in this encounter Visit Diagnoses Not on filedocumented in this encounter
--- OUTSIDE RECORDS SUMMARY | 2024-03-07 09:33 | XMS_ITS | Clinical Summary ---
Author Organization [facility] Address [address] [place] [address] Care Team Providers Care Doffer Name Role Phone Unavailable Primary Care Provider Unavailabl e Source Comments [facility],non-owned Affiliates and Associated Physician Practices is amultiple site organization consisting of ambulatory clinics and hospital sitesin [place], [place]. This disclosure is being madepursuant to the Care Everywhere program and may not contain all information available regarding this patient. Last updated 17.[facility] [employer] Social History Tobacco Use Types Packs/Day Years [...]
== END 2024-03-07 09:02 | disposition home or self-care (01) ==
LOC: ANHSURGERY 09:03
PROVIDERS: PCP Clinical Nurse Specialist; Visit Provider Surgery
DX: K40.20 Bilateral inguinal hernia, without obstruction or gangrene, not specified as recurrent (principal)
CPT/HCPCS: 36415; 86850; 86900; 86901

== ENCOUNTER 2024-03-15 00:32 | Day surgery (SDC) | payer MEDICARE, SELFPAY ==
--- NOTE | 2024-03-05 11:15 | PC.NURSE ---
Report to the Outpatient Waiting Room, entrance under the green pavilion located off [facility], at time __10 am on date _03/15/24 . Planned Procedure Time: _1200 noon .? Time changes happen often and if your time is changed the preop area will call you the afternoon before. - You and your visitor will be asked to self-screen and do not enter if you have any COVID symptoms. Please call surgeon if you need to reschedule. - A mask is optional within the hospital at this time. Patients may have clear liquids (water, carbonated beverages, clear teas, apple juice) until 3 hours prior to surgery( 9am) with a maximum of 20 ounces. - No food from midnight until time of surgery and no smoking. This includes no chewing gum, candy or mints. Take only the following medications with a SIP of water on the morning of surgery: LEVOTHYROXINE MAY CONTINUE [address] SWEET DO NOT STOP ANY OF YOUR OTHER PRESCRIPTION MEDICATIONS PRIOR TO SURGERY EXCEPT THE FOLLOWING Medications to discontinue per physician NONE Please no make-up, nail brit[place] virgin islander, hairspray, perfume, deodorant, or body powder the day of surgery.? No jewelry (including any body piercings) or valuables the day of surgery, leave them at home.? Please take a shower or bath the night before, or the morning of, surgery with an antibacterial soap.? Wear comfortable, loose fitting clothing.? Children are encouraged to wear pajamas. - Jewelry must be removed prior to entering the operating room.? Rings and piercings that are not removed may be cut off. - The hospital will not accept responsibility for valuables.? - Please leave all valuables, including medications, at home the day of surgery. If you are going home after surgery, a licensed construction driver must drive you home.? - NO public transportation without another adult if you receive anesthesia. - We recommend that an adult stay with you for 24 hours following discharge. - We also recommend that you do not drive, make important decision, drink alcoholic beverages, or take any drugs that were not prescribed by your health care provider for at least 24 hours after your discharge time. Hold all vitamins and supplements for ___3___ days per anesthesia LAST DOSE 03/11/24 . Follow any additional instructions given to you from your surgeon. Telephone instructions given to __PATIENT and asked if any additional questions and then verbalized understanding. Patient advised to call surgeon office or pre surgery nurse liaison [phone] if any additional questions.
[2024-03-05 11:36] VITALS: BMI 37.3
[2024-03-15] VITALS (12 sets, daily range): BP systolic 95–141; BP diastolic 50–71; PULSE 67–79; RESP 13–18; TEMP 36.7; O2SAT 90–98; BMI 36.5
--- OUTSIDE RECORDS SUMMARY | 2024-03-15 00:35 | XMS_ITS | Patient Health Summary ---
Author Organization [facility] Address [address] [place] [address] Care Team Providers Care Merchandising Execution Associate Name Role Phone Unavailable Primary Care Provider Unavailabl e Note from [facility],non-owned Affiliates and Associated Physician Practices is amultiple site organization consisting of ambulatory clinics and hospital sitesin [place], [place], [place] and [place]. This disclosure is being madepursuant to the Care Everywhere program and may not contain all information available regarding this patient. Last updated 17.[facility] Social History Tobacco Use Types Packs/Day Years [...] period is included. Case Report Dermatopathology Report Case: [id number] Authorizing Provider: Nando Shay MD Collected: 06/16/2021 12:00 AM Ordering Location: [facility] DermPath Lab Received: 06/17/2021 04:30 PM Pathologist: Orly Osuna MD Specimen: Skin, right forearm 2 1:01 PM CDT DERMATOPATHOLOGY LABORATORY Final Diagnosis Specimen A. 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 Path # [id number]. 2 1:01 PM CDT DERMATOPATHOLOGY LABORATORY Gross Description Specimen A: Received is one formalin filled container labeled with the patient's name and designated right forearm. The specimen consists of a shave biopsy measuring [id number]. Jar 0. 2 1:01 PM T DERMATOPATHOLOGY LABORATORY Microscopic Description Specimen A. SKIN, [...] phase of bullous pemphigoid. 2 1:01 PM T DERMATOPATHOLOGY LABORATORY Disclaimer An external and internal positive and negative controls are appropriate for the histochemical, immunohistochemical and immunofluorescence stain(s) in this case (if any), except where stated explicitly. The performance characteristics of the stain(s) cited in this report were developed and its performance characteristic determined by the Dermatopathology Laboratory at [facility], directed by Dr. Isabel Winters. These tests need not be, and therefore are not, approved by the [place] Food and Drug Administration. The tests are used for clinical purposes. Billing Codes Specimen Charges Stain Charges 27713 1 55152 1 2 1:01 PM CDT DERMATOPATHOLOGY LABORATORY Embedded Images 2 1:01 PM T DERMATOPATHOLOGY LABORATORY Pathology/Cytolog y TISSUE SPECIMEN FROM SKIN / Unknown 06/16/2021 06/17/2021 4:30 PM CDT Nando Shay MD LAB - PATHOLOGY/CYTO LOGY ORDERABLES DERMATOPATHOLOGY LABORATORY [facility] - Department of Dermatology [address], 3[address] [phone]
--- OUTSIDE RECORDS SUMMARY | 2024-03-15 00:35 | XMS_ITS | Encounter Summary ---
Author Organization [facility] Address [address] [facility] [place] [address] Care Team Providers Care Exhibit Specialist Name Role Phone Unavailable Primary Care Provider Unavailabl e Encounter Details Date Type Department Care Team (Late st Contact Info) Description 06/17/2021 Lab Requisition [facility] DermPath Lab [address] [facility] [place] [phone] Nando Shay MD [address] [facility] [place] [address] Social History Tobacco Use Types [...] 12:00 AM CDT) Case Report Dermatopathology Report Case: [id number] Authorizing Provider: Nando Shay MD Collected: 06/16/2021 12:00 AM Ordering Location: [facility] Derm[facility] Lab Received: 06/17/2021 04:30 PM Pathologist: Orly Osuna MD Specimen: Skin, right forearm 2 1:01 PM CDT DERMATOPATHOLOGY LABORATORY Final Diagnosis Specimen A. 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 Path # [id number]. 2 1:01 PM CDT DERMATOPATHOLOGY LABORATORY Gross Description Specimen A: Received is one formalin filled container labeled with the patient's name and designated right forearm. The specimen consists of a shave biopsy measuring [id number]. Jar 0. 2 1:01 PM CDT DERMATOPATHOLOGY LABORATORY Microscopic Description Specimen A. SKIN, [...] characteristic determined by the Dermatopathology Laboratory at [facility], directed by Dr. Isabel Winters. These tests need not be, and therefore are not, approved by the [place] Food and Drug Administration. The tests are used for clinical purposes. Billing Codes Specimen Charges Stain Charges 28668 1 73359 1 2 1:01 PM CDT DERMATOPATHOLOGY LABORATORY Embedded Images 2 1:01 PM CDT DERMATOPATHOLOGY LABORATORY Pathology/Cytolog y TISSUE SPECIMEN FROM SKIN / Unknown 06/16/2021 06/17/2021 4:30 PM CDT Nando Shay MD LAB - PATHOLOGY/CYTO LOGY ORDERABLES DERMATOPATHOLOGY LABORATORY [facility] - Department of Dermatology [address], [address] [phone] documented in this encounter Visit Diagnoses Not on filedocumented in this encounter
--- OUTSIDE RECORDS SUMMARY | 2024-03-15 00:35 | XMS_ITS | Referral Summary ---
Author Organization [facility] Address [address] [facility] [place] [address] Care Team Providers Care Sales Assoc Name Role Phone Unavailable Primary Care Provider Unavailabl e Source Comments [facility],non-owned Affiliates and Associated Physician Practices is amultiple site organization consisting of ambulatory clinics and hospital sitesin [place], [place], [place] and [place]. This disclosure is being madepursuant to the [...]
--- OUTSIDE RECORDS SUMMARY | 2024-03-15 00:35 | XMS_ITS | Referral Summary ---
Author Organization [facility] Address [address] [place] [address] Care Team Providers Care Central Aisle Cashier Name Role Phone Zheng Murillo DO Primary Care Provider [phone] Encounters Date Type Department Care Team Description 01/20/2024 Plan of Care Documentation [facility] Occupational Therapy [address] [place] [address] 6th [place] [address] [place] [address] 01/19/2024 Orders Only BUSTAMANTE OS HAND/WRIST Scanning, Provider 01/19/2024 4:10 PM BEAM BUILDER HELPER Therapy [facility] Occupational Therapy [facility] 6th [place] [address] [place] [address] Nava Cannon OT Arthritis of carpometacarpal (CMC) joint of left thumb (Primary Dx) 01/19/2024 3:20 PM BEAM BUILDER HELPER Office Visit [facility] Orthopaedic Surgery [address] [place] [address] 6th [place] [address] [place] [address] Emili White MD Trigger ring finger of [...] on file Legal Sex Male 11:35 PM BEAM BUILDER HELPER Gender Identity Not on file Sexual Orientation Not on file Last Filed Vital Signs Vital Sign Reading Time Taken Comments Blood Pressure 148/78 11/20/2019 3:00 PM CDT Pulse 89 11/20/2019 3:00 PM CDT Temperature 36.1 C (97 F) 11/20/2019 3:00 PM CDT Respiratory Rate - [...] 3 Months Insurance MEDICARE [employer] Care Teams Central Aisle Cashier Relationship Specialty Start Date End Date Zheng Murillo DO PCP - General 01/05/17
--- OUTSIDE RECORDS SUMMARY | 2024-03-15 00:35 | XMS_ITS | Clinical Summary ---
Author Organization [facility] Address [address] [place] [address] Care Team Providers Care Fine Chemicals Operator Name Role Phone Zheng Murillo DO Primary Care Provider +1- [phone] Allergies No known active allergies Medications aspirin [...] Team Description 01/20/2024 Plan of [address] [facility] Occupational Therapy [address] [place] [address] 6th [place] [address] [place] [address] 01/19/2024 4:10 PM PANEL INSTRUMENT REPAIRER Therapy [facility] Occupational Therapy [address] [place] [address] 6th [place] [address] [place] [address] Nava Cannon OT Arthritis of carpometacarpal (CMC) joint of left thumb (Primary Dx) 01/19/2024 3:20 PM PANEL INSTRUMENT REPAIRER Office Visit [facility] Orthopaedic Surgery [facility] 6th [place] [address] [place] [address] Emili White MD Trigger ring finger of [...] on file Legal Sex Male 11:35 PM PANEL INSTRUMENT REPAIRER Gender Identity Not on file Sexual Orientation [...] PCV20) 11/25/2018 11/25/2017 Covid-19 Vaccine (3 - 2023- season) 2023, 02/14/2020 Influenza Vaccine (#1) 2023 DTaP/Tdap/Td Vaccine (2 - Td or Tdap) 03/04/2028 Zoster Vaccine Completed 04/05/2018, 01/19/2018 Procedures Procedure Name Priority Date/Time Associated Diagnosis Comments SCAN - RADIOLOGY/IMAGING 01/19/2024 from Last 3 Months Results * SCAN - RADIOLOGY/IMAGING (01/19/2024) Anatomical Region Laterality Modality Other us Provider Scanning Final Result from Last 3 Months Insurance MEDICARE [employer] Care Teams Fine Chemicals Operator Relationship Specialty Start Date End Date Zheng Murillo DO PCP - General 01/05/17
--- OUTSIDE RECORDS SUMMARY | 2024-03-15 00:35 | XMS_ITS | CONTINUITY OF CARE DOCUMENT ---
Author Name yuniel brice Address Unknown Organization [facility] Address [address] [place] [address] [address] [place] [address] Phone [phone] Care Team Providers Care Solution Director Name Role Phone Leonardo MCKOY, Caron Unavailable [phone] GAYE [place] MD Unavailable MINDY SANABRIA DO Unavailable INSURANCE PROVIDERS Payer name Policy type / Coverage type [place] red democrat ID [facility] [id number]
--- OUTSIDE RECORDS SUMMARY | 2024-03-15 00:35 | XMS_ITS | Encounter Summary ---
Author Organization [facility] Address [address] [facility] [place] [address] Care Team Providers Care Long Line Teamster Name Role Phone Unavailable Primary Care Provider Unavailabl e Encounter Details Date Type Department Care Team (Late st Contact Info) Description 02/24/2021 Lab Requisition [facility] DermPath Lab [address] [facility] [place] [phone] Nando Shay MD [address] [facility] [place] [address] Social History Tobacco Use Types [...] Comments DERMATOPATHOLOGY Routine 02/20/2021 12:0 0 AM CARE CONSULTANT documented in this encounter Results * DERMATOPATHOLOGY (02/20/2021 12:00 AM CARE CONSULTANT) Case Report Dermatopathology Report Case: [id number] Authorizing Provider: Nando Shay MD Collected: 02/20/2021 12:00 AM Ordering Location: [facility] DermPath Lab Received: 02/24/2021 08:05 AM Pathologist: Orly Osuna MD Specimen: Skin, right wrist 2 5:27 PM CARE CONSULTANT DERMATOPATHOLOGY LABORATORY Final Diagnosis Specimen A. SKIN, right wrist: ACTINIC KERATOSIS (L57.0) EPIDERMAL NECROSIS SUGGESTIVE OF EXCORIATION (L98.499) 2 5:27 PM CARE CONSULTANT DERMATOPATHOLOGY LABORATORY Clinical History BCCA vs SCCA vs other. Path# [id number]. 2 5:27 PM [facility] DERMATOPATHOLOGY LABORATORY Gross Description Specimen A: Received is one formalin filled container labeled with the patient's name and designated right wrist. The specimen consists of a shave biopsy measuring [id number]. Jar 0. 2 5:27 PM [facility] [...] characteristic determined by the Dermatopathology Laboratory at [facility], directed by Dr. Isabel Winters. These tests need not be, and therefore are not, approved by the [place] Food and Drug Administration. The tests are used for clinical purposes. Billing Codes Specimen Charges Stain Charges 88248 1 67821 68007 1 1 2 5:27 PM [facility] DERMATOPATHOLOGY LABORATORY Embedded Images 2 5:27 PM [facility] DERMATOPATHOLOGY LABORATORY Pathology/Cytolog y TISSUE SPECIMEN FROM SKIN / Unknown 02/20/2021 02/24/2021 8:05 AM CARE CONSULTANT Nando Shay MD LAB - PATHOLOGY/CYTO LOGY ORDERABLES DERMATOPATHOLOGY LABORATORY [facility] - Department of Dermatology [address], [address] [phone] documented in this encounter Visit Diagnoses Not on filedocumented in this encounter
--- OUTSIDE RECORDS SUMMARY | 2024-03-15 00:35 | XMS_ITS | Clinical Summary ---
Author Organization [facility] Address [address] [place] [address] Care Team Providers Care Rodeo Rider Name Role Phone Unavailable Primary Care Provider Unavailabl e Source Comments [facility],non-owned Affiliates and Associated Physician Practices is amultiple site organization consisting of ambulatory clinics and hospital sitesin [place], [place], [place] and [place]. This disclosure is being madepursuant to the Care Everywhere program and may not contain all information available regarding this patient. Last updated 17.[facility] [employer] Social History Tobacco Use Types Packs/Day Years [...] (#1) 2023 DEPRESSION SCREENING 02/08/2024 MEDICARE AWV CALENDAR YEAR 2024 Respiratory Syncytial Virus (RSV) [...]
[2024-03-15] MEDS: LACTATED RINGERS 1,000 ML 30 ML IV CONT ×3 (10:25→15:19)
[2024-03-15] MEDS: ACETAMINOPHEN 500 MG TABLET 1000 MG PO (10:28)
[2024-03-15] MEDS: KETOROLAC 15 MG/ML VIAL (*BKC) IV PUSH (10:29)
--- NOTE | 2024-03-15 11:36 | P.PNAN_ITS ---
Anes - Initial Pre Proc Eval Procedure: Operation Date: 03/15/24 12:00 Proposed Procedures p Robotic Assisted Bilateral Inguinal Hernia Repair with Mesh - Meghann Estrella MD Date/Time: 03/15/24 11:36 Surgeon: Meghann Estrella MD Pre Op Diagnosis: Bilateral Ing Hernias Patient Data Age: 73 Gender: M Height: 1.78 m Weight: 115.4 kg Last Vital Signs Temp 36.7 C 03/15/24 10:39 Pulse 72 03/15/24 10:39 Resp 18 03/15/24 10:39 BP 141/71 H 03/15/24 10:39 Pulse Ox 98 03/15/24 10:39 O2 Del Method Room Air 03/15/24 10:39 Allergies Allergy/AdvReac Type Severity Reaction Status Date / Time adhesive Allergy Mild Redness of Verified 03/15/24 10:08 Skin Home Medications ?Medication ?Instructions ?Recorded ?Confirmed ?Type aspirin 81 mg tablet,delayed 81 mg PO HS 10/17/19 03/15/24 History release (Adult Low Dose Aspirin) fluticasone propionate 50 See Rx Instructions .Route 02/25/22 03/15/24 Rx mcg/actuation nasal .COMPLEX #48 grams spray,suspension omega-3 fatty acids [Fish Oil] 1 cap PO DAILY 03/03/23 03/15/24 History azelastine 137 mcg (0.1 %) nasal 137 mcg (0.137 mL) intranasal Q12H 08/31/23 03/15/24 Rx spray #30 mL clobetasol 0.05 % topical cream 1 applic topical DAILY #60 grams 08/31/23 03/05/24 Rx levothyroxine 50 mcg tablet 50 mcg PO DAILY #90 tabs 11/29/23 03/15/24 Rx pravastatin 40 mg tablet 40 mg PO QHS #90 tabs 11/29/23 03/15/24 Rx tamsulosin 0.4 mg capsule (Flomax) 0.4 mg PO DAILY #90 caps 11/29/23 03/15/24 Rx lisinopril 20 mg tablet 20 mg PO HS 03/05/24 03/15/24 History omeprazole 40 mg capsule,delayed 40 mg PO HS 03/05/24 03/15/24 History release Patient hx anesthesia problems: none Family hx anesthesia problems: none Results Review: All pre-operative results and documents have been reviewed as part of the pre- operative evaluation. [facility] Past Medical History Medical History Obesity Heartburn BPH (benign prostatic hyperplasia) Hemorrhoids Umbilical hernia Sexual dysfunction History of measles, mumps, or rubella Sleep apnea Elevated liver enzymes Hypertension Hyperlipidemia Hypothyroidism Surgical History Surgical History H/O adenoidectomy History of tonsillectomy Family History Family History Father Lymphoma Mother No problems noted. Social History Social History Smoking status: Never smoker Second hand tobacco smoke exposure: No Alcohol intake: never Substance use: never Substance use type: does not use Lack of Transportation: No Lack of Food: Never True Current Housing: I Have Housing Concerned About Future Housing: No Difficulty Paying Gas/Electric Bills: No Difficulty Paying for Meds: No Currently Unemployed: No Living arrangements: with family Spiritual care concerns: No Anes - Eval Final PreProcedure Day of Procedure 03/15/24 11:36 Patient weight: obese Heart: regular rate and rhythm Lungs: clear to auscultation Airway: Mallampati scale class II Neurological: alert and oriented Last oral intake: >/= 8 hours ASA classification: III Emergent: no Anesthetic plan: proceed Anesthesia type and monitoring: general ETT and standard monitoring Results Review: All pre-operative results and documents have been reviewed as part of the pre- operative evaluation. Informed Consent: The patient's anesthetic plan and its attendant risks and benefits were discuss ed with the patient/family/POA. Questions were solicited and answers provided to the satisfaction of the patient/family/POA.
--- NOTE | 2024-03-15 12:02 | PM.IMHP ---
H&P: HPI History of Present Illness Date/Time: 03/15/24 12:02 Chief Complaint: Bilateral inguinal hernia Narrative: Justyn is a 73 y/o male who presents to the office today at the request of ZEV Patel for an evaluation of bilateral inguinal hernias. Patient reports he had COVID at the beginning of December and was coughing quite a bit. While recovering he had severe LUQ pain after moving furniture. He had some intermittent abdominal pain, but that has since improved leading him to believe this pain was musculoskeletal. He denies any palpable bulging, tolerates a normal diet and reports normal BM's and urine output. Patient had CT abdomen/pelvis on 01/08/24 which showed Right inguinal hernia containing the cecum and appendix without obstruction. Left inguinal hernia containing fat. Review of Systems Review of Systems: All systems reviewed & are unremarkable except as noted in HPI and below PMFSH Past Medical History Medical History Obesity Heartburn BPH (benign prostatic hyperplasia) Hemorrhoids Umbilical hernia Sexual dysfunction History of measles, mumps, or rubella Sleep apnea Elevated liver enzymes Hypertension Hyperlipidemia Hypothyroidism Surgical History Surgical History H/O adenoidectomy History of tonsillectomy Family History Family History Father Lymphoma Mother No problems noted. Social History Social History Smoking status: Never smoker Second hand tobacco smoke exposure: No Alcohol intake: never Substance use: never Substance use type: does not use Lack of Transportation: No Lack of Food: Never True Current Housing: I Have Housing Concerned About Future Housing: No Difficulty Paying Gas/Electric Bills: No Difficulty Paying for Meds: No Currently Unemployed: No Living arrangements: with family Spiritual care concerns: No Meds Home Medications and Allergies Home Medications ?Medication ?Instructions ?Recorded ?Confirmed ?Type aspirin 81 mg tablet,delayed 81 mg PO HS 10/17/19 03/15/24 History release (Adult Low Dose Aspirin) fluticasone propionate 50 See Rx Instructions .Route 02/25/22 03/15/24 Rx mcg/actuation nasal .COMPLEX #48 grams spray,suspension omega-3 fatty acids [Fish Oil] 1 cap PO DAILY 03/03/23 03/15/24 History azelastine 137 mcg (0.1 %) nasal 137 mcg (0.137 mL) intranasal Q12H 08/31/23 03/15/24 Rx spray #30 mL clobetasol 0.05 % topical cream 1 applic topical DAILY #60 grams 08/31/23 03/05/24 Rx levothyroxine 50 mcg tablet 50 mcg PO DAILY #90 tabs 11/29/23 03/15/24 Rx pravastatin 40 mg tablet 40 mg PO QHS #90 tabs 11/29/23 03/15/24 Rx tamsulosin 0.4 mg capsule (Flomax) 0.4 mg PO DAILY #90 caps 11/29/23 03/15/24 Rx lisinopril 20 mg tablet 20 mg PO HS 03/05/24 03/15/24 History omeprazole 40 mg capsule,delayed 40 mg PO HS 03/05/24 03/15/24 History release Allergies Allergy/AdvReac Type Severity Reaction Status Date / Time adhesive Allergy Mild Redness of Verified 03/15/24 10:08 Skin Vital Signs Vital Signs - 24 hr 03/15/24 10:39 Temperature 36.7 C Pulse Rate 72 Respiratory Rate 18 Blood Pressure 141/71 H Pulse Oximetry 98 Oxygen Delivery Room Air Exam Const: General: cooperative, comfortable, no acute distress and obese Resp: Auscultation: clear to auscultation bilaterally Cardio: Rate: regular rate Rhythm: regular rhythm GI: Inspection: normal to inspection, non-distended and obesity GI Palp: No abdominal tenderness and Yes Hernia present Other: bilateral inguinal hernia right greater than left Assessment and Plan Assessment and plan (1) Bilateral inguinal hernia: Code(s): K40.20 - Bilateral inguinal hernia, without obstruction or gangrene, not specified as recurrent Status: Acute Assessment and Plan: set up for bilateral robotic assisted inguinal hernia repair with mesh
--- NOTE | 2024-03-15 12:04 | WPDHPUPDATE1 ---
History and Physical Update Update Date/Time: 03/15/24 12:04 History and Physical has been reviewed, including an updated exam of the patient. There are NO changes in the patient's condition. Risks, benefits, and alternatives have been discussed and questions answered. Patient agrees to proceed with procedure.
[2024-03-15] MEDS: ceFAZolin 2 GM/D5W 50 ML 2 GM/50 ML BAG IVPB (12:10)
[2024-03-15] MEDS: BUPIVACAINE/EPINEPHRINE 0.5% 30 ML VIAL INFILTRATE (12:25)
--- NOTE | 2024-03-15 14:05 | P.OP_ITS ---
Procedure Note - Detailed Date of Procedure 03/15/24 Pre-op Diagnosis incarcerated right inguinal hernia, left inguinal hernia Post-op Diagnosis Same Procedure Performed robotic assisted repair incarcerated right inguinal hernia with mesh, left inguinal hernia with mesh Surgeon Meghann Estrella MD Anesthesia General and Local Indications 73-year-old male with incarcerated right inguinal hernia, left inguinal hernia Findings incarcerated right inguinal hernia with cecum, small indirect left inguinal hernia Description of Procedure Patient was brought into the operating room and placed in the supine position. After adequate induction of general anesthesia, the patient was prepped and draped in normal sterile fashion. A time-out was then done to verify the patient's identity, as well as the procedure being performed. I began by making a 8 mm incision in the supraumbilical region, a Veress needle was then placed into the peritoneal cavity. CO2 gas was then insufflated and after adequate pneumoperitoneum was achieved, the Veress needle was removed. I then placed an 8 mm trocar through this incision. I then placed the endoscope through this trocar site and under direct visualization placed 2 further 8 mm ports in the right and left mid abdomen. The [employer] robot was then docked to the 3 trocar sites. I then scrubbed out and went to the robotic console. There were some adhesions to anterior abdominal wall in the lower abdomen secondary to previous umbilical hernia repair. This was taken down under direct visualization. There was noted to be some fat necrosis especially on the left lower abdomen. Once taken down, it was noted that the patient had a large sized right inguinal hernia with incarcerated cecum. The left side was examined and a small hernia defect was noted. I was able to dissect out and reduce the incarcerated cecum. I began by making a preperitoneal flap approximately 6 cm superior to the right sided defect. This flap was carried medially past the umbilical ligaments and laterally to the transversalis. It then began dissection of my medial compartment taking this down to the pubic tubercle. There was no direct defect noted. I then began the lateral dissection taking this down to the transversalis fascia. Once these compartments were achieved, I began dissection around the cord structures. A large indirect hernia was noted at this point. Using careful dissection, was able to reduce indirect hernia sac off the cord structures. Once this was adequately done, I went ahead and placed a large piece of 3D Max mesh into the abdominal cavity. The mesh was carefully positioned, centering the center of the mesh over the indirect defect. Once this was done, was very satisfied with our repair. Using 3-0 Vicryl sutures, I tacked the mesh medially to Nasir's ligament. Two lateral sutures were placed from the mesh to the transversalis fascia. I then began on the left side by making a preperitoneal flap approximately 6 cm superior to the left sided defect. This flap was carried medially past the umbilical ligaments and laterally to the transversalis. It then began dissection of my medial compartment taking this down to the pubic tubercle. I then began the lateral dissection taking this down to the transversalis fascia. Once these compartments were achieved, I began dissection around the cord structures. A small indirect hernia was noted at this point. Using careful dissection, was able to reduce indirect hernia sac off the cord structures. Once this was adequately done, I went ahead and placed a large piece of 3D Max mesh into the abdominal cavity. The mesh was carefully positioned, centering the center of the mesh over the indirect defect. Once this was done, was very satisfied with our repair. Using 3-0 Vicryl sutures, I tacked the mesh medially to Nasir's ligament. Two lateral sutures were placed from the mesh to the transversalis fascia.I then closed the peritoneal flap bilaterally with running 2.0 V Lock s uture x 2. The abdomen was then desufflated, and all ports were removed. All incisions were then closed with the 4.0 monocryl suture. Dermabond was placed on each wound. The patient tolerated the procedure well, was extubated in the operating room postoperatively, and will now be transferred to the recovery room in stable condition. Implants bilateral large 3DMax mesh Estimated Blood Loss 10 Drains No Packing No Pathology None sent Complications No immediate complications Condition Stable Disposition PACU [facility] Billing Surgery - Charge Forward: Surgery Billing
[2024-03-15] MEDS: oxyCODONE HCL (*CRX) 5 MG TAB IR PO (15:47)
== END 2024-03-15 16:50 | disposition home or self-care (01) ==
PROVIDERS: PCP Clinical Nurse Specialist; Visit Provider Surgery
PROC: 8E0Y4CZ Robotic Assisted Procedure of Lower Extremity, Percutaneous Endoscopic Approach (ICD-10-PCS; CPT 49650; principal; 2024-03-15 12:00)
DX: K40.30 Unilateral inguinal hernia, with obstruction, without gangrene, not specified as recurrent (principal); K40.90 Unilateral inguinal hernia, without obstruction or gangrene, not specified as recurrent
CPT/HCPCS: 49650; S2900; A9270; C1781; J0330; J0690; J1100; J1171; J1885; J2003; J2250; J2405; J2704; J3010; J7030; J7120

== ENCOUNTER 2024-08-06 08:28 | Outpatient (CLI) | payer MEDICARE, SELFPAY ==
--- NOTE | 2024-08-06 | EST_ITS ---
Patient Info Name: Justyn Mendoza Age: 74 years : 1950 Gender: Male Ht: 70 in Wt: 255 lbs BSA: 2.43 m2 HR: 67 bpm BP: 124 / 68 mmHg Exam Date: 08/06/2024 10:09 AM Patient Status: O Admit Date: 08/06/2024 Exam Type: CA stress brunilda w NM A regadenoson stress test was performed. Staff Referring Physician: Leanne SPRING Attending Provider: Leanne SPRING Exercise Technologist: Lisa Sosa Exercise Physician: Holden Santa DO Summary 1. 1. Negative lexiscan stress test for ischemic ST changes by ECG criteria. 2. 2. Stable hemodynamics throughout the test. 3. 3. Nuclear scan to follow and will be reported separately. Please correlate with it. 4. 4. Patient informed of the above results. Protocol: Lexiscan Stress ECG Details Stage: REST Duration (min): 1 min : 5 sec HR (bpm): 67 SBP (mmHg): 124 DBP (mmHg): 68 Stage: REST Duration (min): 5 min : 53 sec HR (bpm): 67 SBP (mmHg): 124 DBP (mmHg): 68 Stage: STAGE 1 Duration (min): 1 min : 0 sec HR (bpm): 92 SBP (mmHg): 129 DBP (mmHg): 73 Stage: RECOVERY Duration (min): 1 min : 0 sec HR (bpm): 88 SBP (mmHg): 129 DBP (mmHg): 73 Stage: RECOVERY Duration (min): 2 min : 0 sec HR (bpm): 80 SBP (mmHg): 129 DBP (mmHg): 73 Stage: RECOVERY Duration (min): 3 min : 0 sec HR (bpm): 77 SBP (mmHg): 137 DBP (mmHg): 65 Stage: RECOVERY Duration (min): 3 min : 33 sec HR (bpm): 76 SBP (mmHg): 137 DBP (mmHg): 65 Rest HR: 67 bpm Peak HR: 95 bpm Rest Sys BP: 124 mmHg Peak Sys BP: 137 mmHg Max Pred HR: 145 bpm % Max Pred HR: 66 % Target HR: 123 bpm Max RPP: 13,015 bpm*mmHg Termination Reason: Completed protocol Cardiac Symptoms: Dyspnea Total Time: 1 min : 0 sec Rest Sue BP: 68 mmHg Peak Sue BP: 65 mmHg Total Dose: 0.4 mg Resting ECG Sinus rhythm. Stress ECG No ST changes. Arrhythmias None. Report Signatures
--- NOTE | ~2024-08-06 | NM_ITS ---
EXAMINATION: NM brunilda stress w perfusion DATE: 08/06/2024 11:48 INDICATION: Chest pain TECHNIQUE: Rest images were obtained following intravenous administration of 10.7 mCi Tc99m tetrofosm in (Myoview). The patient was infused intravenously with Lexiscan (Regadenoson). Then, 33.4 mCi Tc99m tetrofosmin (Myoview) was administered intravenously, and stress images were obtained. Data was jeremy nstructed into short axis and horizontal and vertical long axis SPECT images. Gated SPECT images were also obtained. COMPARISON: None. FINDINGS: Large perfusion defect, moderate severity on the rest images consistent with infarct involv ing the apical, apical septal, apical, mid and basilar inferior, apical lateral and mid and basilar i nferolateral segments. The perfusion defect is slightly more severe at the apical, apical septal, mid inferolateral and mid inferior segments consistent with superimposed ischemia. There is normal left ventricular chamber size, wall motion and ejection fraction. Left ventricular ejection fraction jose d ures 64%. IMPRESSION: 1. Large predominantly nonreversible infarct involving the apical, septal, inferior and lateral apica l segments as well as the mid and basilar inferior and inferolateral segments, portion of which demon strate mild partially reversible ischemia as detailed above. 2. Left ventricular ejection fraction measuring 64%. Reviewed, dictated and finalized at location B. IMPRESSION: 1. Large predominantly nonreversible infarct involving the apical, septal, infe rior and lateral apical segments as well as the mid and basilar inferior and in ferolateral segments, portion of which demonstrate mild partially reversible is chemia as detailed above. 2. Left ventricular ejection fraction measuring 64%.
--- NOTE | 2024-08-06 08:47 | ECHO_ITS ---
Patient Info Name: Justyn Mendoza Age: 74 years : 1950 Gender: Male Ht: 70 in Wt: 255 lbs BSA: 2.43 m2 HR: 71 bpm BP: 133 / 69 mmHg Technical Quality: Fair Exam Date: 08/06/2024 8:52 AM Patient Status: O Admit Date: 08/06/2024 Exam Type: CA echo doppler color flow Complete two-dimensional, color flow and Doppler transthoracic echocardiogram is performed. Staff Referring Physician: Leanne SPRING Environmental Marketer: Gwendolyn Dominguez Attending Provider: Leanne Dan [facility] Summary 1. Complete two-dimensional, color flow and Doppler transthoracic echocardiogram is performed. 2. Left ventricular chamber dimension is normal. 3. Left ventricular systolic function is normal, estimated at 65-70. 4. The left ventricular diastolic function is grade I diastolic dysfunction. 5. E/e' 8 is minimally elevated. 6. The mitral valve has a moderately calcified annulus. 7. No pulmonary hypertension, estimated pulmonary arterial systolic pressure is 39 mmHg. Left Ventricle E/e' 8 is minimally elevated. Left ventricular chamber dimension is normal. Left ventricular systolic function is normal, estimated at 65-70. The left ventricular diastolic function is grade I diastolic dysfunction. Right Ventricle Right ventricular chamber dimension is normal. Right ventricular systolic function is normal. Left Atria Left atrial chamber dimension is normal. Right Atria Right atrial chamber dimension is normal. Aortic Valve The aortic valve is trileaflet. There is no aortic valve stenosis. There is no aortic valve regurgitation. Pulmonic Valve There is no pulmonic regurgitation. Mitral Valve The mitral valve has a moderately calcified annulus. There is no mitral valve stenosis. There is no mitral valve regurgitation. Tricuspid Valve There is no tricuspid valve regurgitation. No pulmonary hypertension, estimated pulmonary arterial systolic pressure is 39 mmHg. Pericardium/Pleural There is no pericardial effusion. Inferior Vena Cava Normal inferior vena cava with >50% collapse upon inspiration consistent with normal right atrial pressure, 5 mmHg. Aorta The aortic root size at the sinus of Valsalva is normal. Left Ventricular Outflow Tract Name Value Normal LVOT 2D LVOT Diameter 2.0 cm LVOT Doppler LVOT Peak Velocity 132 cm/s LVOT Peak Gradient 7 mmHg LVOT Mean Gradient 4 mmHg LVOT VTI 30 cm LVOT VTI/AV VTI Ratio 1.2 LVOT Stroke Volume 98 ml LVOT CO 7.2 l/min LVOT CI 3.0 l/min/m2 Pulmonic Valve Name Value Normal RVOT Doppler RVOT Peak Velocity 94 cm/s RVOT Peak Gradient 4 mmHg PV Doppler PV Peak Velocity 97 cm/s PV Peak Gradient 4 mmHg Mitral Valve Name Value Normal MV Diastolic Function MV E Peak Velocity 73 cm/s MV A Peak Velocity 106 cm/s MV E/A 0.7 MV Decel Time (PW) 286 ms Tricuspid Valve Name Value Normal TV Regurgitation Doppler TR Peak Velocity 292 cm/s TR Peak Gradient 34 mmHg Estimated PAP/RSVP RA Pressure 5 mmHg <=5 PA Systolic Pressure 39 mmHg <36 RV Systolic Pressure 39 mmHg <36 Aorta Name Value Normal Ascending Aorta Ao Root Diameter (MM) 3.3 cm Ao Root Diam Index (MM) 1.4 cm/m2 Aortic Valve Name Value Normal AV Doppler AV Peak Velocity 132 cm/s AV Peak Gradient 7 mmHg AV Mean Gradient 5 mmHg AV VTI 26 cm AV Area (Cont Eq VTI) 3.8 cm2 >=3.0 AV Area (Cont Eq Polo) 3.2 cm2 AV DI (Polo) 1.00 AV Regurgitation 2D LVOT Area 3.2 cm2 Ventricles Name Value Normal LV Dimensions 2D/MM IVS Diastolic Thickness (2D) 1.0 cm 0.6-1.0 LVID Diastole (2D) 5.2 cm 4.2-5.8 LVIW Diastolic Thickness (2D) 1.0 cm 0.6-1.0 LVID Systole (2D) 3.0 cm 2.5-4.0 LVOT Diameter 2.0 cm LV Mass (2D Cubed) 201.46 g 88.00-224.00 LV Mass Index (2D Cubed) 83 g/m2 49-115 Relative Wall Thickness (2D) 0.39 <=0.42 LV Fractional Shortening/Ejection Fraction 2D/MM LV Fractional Shortening (2D) 42 % 25-43 LV EF (2D Teichholz) 73 % LV Diastolic Volume (4C MOD) 64 ml LV EF (4C MOD) 60 % LV Diastolic Volume (2C MOD) 51 ml LV EF (2C MOD) 55 % LV Diastolic Volume (BP MOD) 58 ml 62-150 LV Diastolic Volume Index (BP MOD) 24 ml/m2 34-74 LV Systolic Volume (BP MOD) 24 ml 21-61 LV Systolic Volume Index (BP MOD) 10 ml/m2 11-31 LV EF (BP MOD) 58 % 52-72 LV Diastolic Length (4C) 7.9 cm LV Systolic Length (4C) 7.2 cm LV Stroke Volume (4C MOD) 39 ml Atria Name Value Normal LA Dimensions LA Dimension (MM) 4.5 cm 3.0-4.0 LA Volume (4C A-L) 47 ml LA Volume (BP A-L) 52 ml RA Dimensions RA Systolic Major [place] Length (4C) 5.7 cm 2.1-2.7 RA Area (4C) 14.8 cm2 <=18.0 Report Signatures
== END 2024-08-06 08:29 | disposition home or self-care (01) ==
PROVIDERS: Visit Provider Clinical Nurse Specialist
DX: I21.29 ST elevation (STEMI) myocardial infarction involving other sites (principal)
CPT/HCPCS: 78452; 93017; 93306; A9502; J2785